=== PATIENT | female | born 1995 | race Two or more races ===

== ENCOUNTER 2017-07-15 22:16 | Emergency (ER) | payer MEDICAID ==
[~2017-07-15] VITALS: Ht 162.6 cm; Wt 53.1 kg
[~2017-07-15 22:16] MED LIST: CEPHALEXIN500 MG ORAL; CLINDAMYCIN HC300 MG ORAL
[2017-07-15 22:32] VITALS: BP 122/78
[2017-07-15 23:25] VITALS: BP 122/78
--- NOTE | 2017-07-17 06:46 | Emergency Room Report ---
History of Present Illness General Chief Complaint: Nosebleed Source: Patient Present Illness HPI 21-year-old female no significant past medical history presenting with epistaxis intermittently for 2 days. Patient states that she will get nosebleeds to right near, occurs 2-3 times a day, stop spontaneously less than 15 seconds of pressure. Denies any fever chills. No shortness of breath. Patient denies any blood disorders. Denies any cocaine use. Denies any nose picking. Also states that nosebleeding has been giving her a generalized headache. Mild. No photophobia or phonophobia. No neck pain. Occurs intermittently. No nausea no vomiting. No blurry vision or motor or sensory loss Allergies: Coded Allergies: No Known Allergies (Unverified , 10/31/14) Patient History Past Medical History: see triage record Past Surgical History: none Pertinent Family History: none Last Menstrual Period: two weeks ago Now: No Reviewed Nursing Documentation: PMH: Agreed, PSxH: Agreed Nursing Documentation-PMH Past Medical History: No Stated History Review of Systems All Other Systems: negative except mentioned in HPI Physical Exam Vital Signs Date Time Temp Pulse Resp B/P (MAP) Pulse Ox O2 Delivery O2 Flow Rate FiO2 07/15/17 22:23 98.4 77 18 114/71 98 Room Air Sp02 EP Interpretation: reviewed, normal General Appearance: normal inspection, well appearing, no apparent distress, alert, GCS 15, non-toxic Head: normocephalic, atraumatic Eyes: bilateral eye normal inspection, bilateral eye PERRL, bilateral eye EOMI ENT: normal ENT inspection, normal pharynx, normal voice, moist mucus membranes , other - No epistaxis bilateral nares Neck: normal inspection, full range of motion, supple Respiratory: normal inspection, lungs clear, normal breath sounds, no respiratory distress, no retraction, no wheezing, speaking full sentences, chest symmetrical Cardiovascular #1: normal inspection, regular rate, rhythm, no edema, normal capillary refill Cardiovascular #2: 2+ radial (R), 2+ radial (L) Gastrointestinal: normal inspection, non tender, soft, non-distended, no guarding Musculoskeletal: normal inspection, back normal, normal range of motion, non- tender Neurologic: normal inspection, alert, oriented x3, responsive, combination worker III-XII nml as tested, motor strength/tone normal, sensory intact, normal gait, speech normal Psychiatric: normal inspection, judgement/insight normal, memory normal Skin: normal inspection, normal color, no rash, warm/dry, well hydrated, normal turgor Medical Decision Making Diagnostic Impression: Primary Impression: Epistaxis Additional Impression: Headache ER Course 21-year-old female with intermittent epistaxis, generalized headache DDX: Epistaxis likely anterior in origin. There is no epistaxis currently Headache: Primary benign headache, at this time the concern was acute intracranial process there are no neurological signs or symptoms on exam Plan: Pain control ER course: Patient has remained stable during ED stay. Headache improved, no epistaxis the emergency room Disposition: Patient is to be discharged to home. Patient is instructed to follow up with their primary care doctor within 5 days. Please note that this Emergency Department Report was dictated using [employer] technology software, occasionally this can lead to erroneous entry secondary to interpretation by the dictation equipment Last Vital Signs Date Time Temp Pulse Resp B/P (MAP) Pulse Ox O2 Delivery O2 Flow Rate FiO2 07/15/17 23:25 98.2 78 16 122/78 98 Room Air Disposition: HOME, SELF-CARE Condition: Stable Patient Instructions: Migraine Headache, [id number], Nosebleed, [id number] Additional Instructions: Please follow up with your primary care doctor within 3 days. Please follow up with ENT in 2 days. Please take Tylenol for headaches as Motrin/naproxen can increased bleeding. Please come back to the emergency room if you are having severe/worsening pain, headache, blurry vision, neck pain, fever chills or intractable nausea or vomiting Viola Mcgee M.D. Jul 17, 2017 06:46
== END 2017-07-15 23:25 | disposition home or self-care (01) ==
LOC: EMR 22:50
DX: R04.0 Epistaxis (principal); R51 Headache
CPT/HCPCS: 99283